=== PATIENT | female | born 1955 | race Caucasian/White ===

== ENCOUNTER → 2017-02-09 | Outpatient (CLI) | payer MEDICARE, OTHER | LOC: HEART 5 11:00 | DX: I50.22 Chronic systolic (congestive) heart failure (principal); I42.0 Dilated cardiomyopathy | CPT/HCPCS: 93306 ==

== ENCOUNTER → 2017-03-14 | Outpatient (CLI) | payer MEDICARE, OTHER | LOC: LAB 14:42 | PROVIDERS: Internal Medicine Cardiovascular Disease | DX: Z13.0 Encounter for screening for diseases of the blood and blood-forming organs and certain disorders involving the immune mechanism (principal); I50.42 Chronic combined systolic (congestive) and diastolic (congestive) heart failure; Z79.899 Other long term (current) drug therapy; R91.8 Other nonspecific abnormal finding of lung field | CPT/HCPCS: 71020; 80053; 80061; 80162; 83036; 83880 ==

== ENCOUNTER → 2021-06-05 | Outpatient (CLI) | payer MEDICARE ==
[~2021-06-05] MED LIST: ALDACTONE25 MG PO; COREG12.5 MG PO; HYDROCODON-ACE1 EAC6 PO; IBUPROFEN600 MG PO; LASIX20 MG PO; LEVAQUIN500 MG PO; LIPITOR80 MG PO; NEURONTIN600 MG PO; VENTOLIN HFA 66.7 GM INH; ZESTRIL2.5 MG PO
== END ==
LOC: KOH-I 08:30
DX: R91.8 Other nonspecific abnormal finding of lung field (principal)
CPT/HCPCS: 71250

== ENCOUNTER → 2021-07-30 | Outpatient (CLI) | payer MEDICARE | LOC: HEART 5 07-22 09:30 | DX: I50.22 Chronic systolic (congestive) heart failure (principal); R06.02 Shortness of breath; I08.1 Rheumatic disorders of both mitral and tricuspid valves; I27.20 Pulmonary hypertension, unspecified | CPT/HCPCS: 93306 ==